=== PATIENT | female | born 1930 | race Caucasian/White ===

== ENCOUNTER 2017-11-17 16:23 | Emergency (ER) | payer MEDICARE, MEDICAID ==
[2017-11-17 16:35] VITALS: TEMP 97.9
[2017-11-17] MEDS ORDERED: MethylPREDNISolone Depo 80 mg/ml (5 ml) Inj IM ONE (16:52)
--- NOTE | 2017-11-17 16:54 | ED PDOC ---
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 Patient does not recall any trauma, however, she states she had been doing light exercise. Pain is worse when the patient moves from sitting to standing position. Patient has taken Tylenol and Naproxen with no relief. Patient denies any fever, chills, chest pain, shortness of breath, nausea, vomiting, diarrhea, urinary symptoms, neck pain, headache, dizziness, or any other complaints. PMD: Dr. White Time/Duration: < month (2 weeks, worse in last 2 days) Symptom Onset: Gradual Symptom Course: Unchanged Context: Home Past Medical History - Provider Review Nursing Documentation Reviewed: Yes - Cardiac Hx Cardiac Disorders: Yes Hx Hypertension: Yes - Pulmonary Hx Respiratory Disorders: No - Neurological Hx Neurological Disorder: No - HEENT Hx HEENT Disorder: No - Renal Hx Renal Disorder: No - Endocrine/Metabolic Hx Endocrine Disorders: Yes Hx Hypothyroidism: Yes - Hematological/Oncological Hx Blood Disorders: No - Integumentary Hx Dermatological Disorder: No - Musculoskeletal/Rheumatological Hx Musculoskeletal Disorders: Yes Hx Back Pain: Yes Hx Fractures: Yes - Gastrointestinal Hx Gastrointestinal Disorders: No - Genitourinary/Gynecological Hx Genitourinary Disorders: No - Psychiatric Hx Psychophysiologic Disorder: No Hx Substance Use: No - Surgical History Hx Orthopedic Surgery: Yes (R LEG R/T TRAUMA) Family/Social History - Physician Review Nursing Documentation Reviewed: Yes Family/Social History: Unknown Family HX Smoking Status: Never Smoked Hx Alcohol Use: No Hx Substance Use: No Allergies/Home Meds Allergies/Adverse Reactions: Allergies acetaminophen [From Percocet] Allergy (Verified 11/17/17 16:31) NAUSEA oxycodone [From Percocet] Allergy (Verified 11/17/17 16:31) NAUSEA Review of Systems - Physician Review All systems were reviewed & negative as marked: Yes - Review of Systems Constitutional: absent: Fevers, Night Sweats Respiratory: absent: SOB Cardiovascular: absent: Chest Pain Gastrointestinal: absent: Diarrhea, Nausea, Vomiting Genitourinary Female: absent: Dysuria Musculoskeletal: Back Pain. absent: Neck Pain Neurological: absent: Headache, Dizziness Physical Exam Vital Signs Reviewed: Yes Vital Signs Temp Pulse Resp BP Pulse Ox 11/17/17 22:09 65 16 162/87 H 95 11/17/17 18:30 78 18 169/76 H 95 11/17/17 16:33 97.9 F 80 18 180/81 H 95 Temperature: Afebrile Blood Pressure: Hypertensive Pulse: Regular Respiratory Rate: Normal Appearance: Positive for: Well-Appearing, Non-Toxic, Comfortable Pain Distress: None Mental Status: Positive for: Alert and Oriented X 3 - Systems Exam Head: Present: Atraumatic, Normocephalic Pupils: Present: PERRL Extroacular Muscles: Present: EOMI Conjunctiva: Present: Normal Mouth: Present: Moist Mucous Membranes Neck: Present: Normal Range of Motion Respiratory/Chest: Present: Clear to Auscultation, Good Air Exchange. No: Respiratory Distress, Accessory Muscle Use Cardiovascular: Present: Regular Rate and Rhythm, Normal S1, S2. No: Murmurs Abdomen: Present: Normal Bowel Sounds. No: Tenderness, Distention, Peritoneal Signs Back: Present: Other (Tenderness on left sciatic notch. Tenderness with motion of hip.) Upper Extremity: Present: Normal Inspection. No: Cyanosis, Edema Lower Extremity: Present: Normal Inspection. No: Edema Neurological: Present: GCS=15, CN II-XII Intact, Speech Normal Skin: Present: Warm, Dry, Normal Color. No: Rashes Psychiatric: Present: Alert, Oriented x 3, Normal Insight, Normal Concentration Medical Decision Making ED Course and Treatment: 11/17/17 17:02 Impression: 87 year old female presents to the Emergency department complaining of left lower back pain. Differential Diagnosis included but are not limited to: sciatica vs. compression fracture vs. bulging disc vs. cholelithiasis Plan: -- CT scan of the lumbar spine -- Methylprednisolone -- Reassess and disposition Progress Notes: 11/17/17 19:[address] results with family and they understand a disposition cannot be made until MRI is resulted. Since fractures may be pathologic, will also order blood work and urinalysis. - Lab Interpretations Lab Results: 11/17/17 19:38 11/17/17 19:38 Lab Results 11/17/17 19:38: Sodium 140, Potassium 4.7, Chloride 102, Carbon Dioxide 27, Anion Gap 15, BUN 17, Creatinine 0.8, Est GFR ( Amer) > 60, Est GFR (Non- Af Amer) > 60, Random Glucose 167 H, Calcium 10.6 H, Phosphorus 4.2, Magnesium 1.8, Total Bilirubin 0.6, AST 28, ALT 28, Alkaline Phosphatase 81, Total Protein 7.6, Albumin 4.2, Globulin 3.4, Albumin/Globulin Ratio 1.2 11/17/17 19:38: PT 11.7, INR 1.03 11/17/17 19:38: WBC 5.9, RBC 4.72, Hgb 11.3 L, Hct 35.8 L, MCV 75.8 L, MCH 23.9 L, MCHC 31.6, RDW 15.2 H, Plt Count 218, MPV 9.5, Gran % 70.4 H, Lymph % (Auto) 17.8 L, [place] % (Auto) 8.1 H, Eos % (Auto) 3.4, Baso % (Auto) 0.3, Gran # 4.16, Lymph # (Auto) 1.1 L, [place] # (Auto) 0.5, Eos # (Auto) 0.2, Baso # (Auto) 0.02 - RAD Interpretation Narrative RAD Interpretations (Text): 11/17/2017 18:57:00 CT Scan LUMBAR SPINE W/O CONTRAST FINDINGS: Vertebrae: There is a severe compression fracture of the L3 vertebral body. There is a moderate to severe compression fracture of T12. Mild retropulsion is visualized at these levels. A mild decrease in vertebral height is visualized at the L1 vertebral level as well. The acuity of these findings is indeterminate. There is no acute fracture of the remaining lumbar levels. Grade I anterolisthesis is noted of L5 on S1. There is mild scoliosis of the lumbar spine. Degenerative disc bulge/osteophyte complexes are identified at multiple lumbar and visualized lower thoracic levels. Osteopenia. Other bones/joints: Postoperative hardware is partially visualized within the left femoral head. Discs/spinal canal/neural foramina: Severe narrowing of thecal sac is visualized a T11-12. Compression of the spinal cord is considered. Moderate narrowing of thecal sac is visualized at L2-3 and L4-5. Mild narrowing of the thecal sac is visualized at L5-S1. Bilateral neural foramina is identified diffusely within the lumbar spine, with left neural foraminal narrowing at T12-L1. Vasculature: Extensive atherosclerotic changes. Gallbladder and bile ducts: Hyperdense gallstones are visualized. Kidneys and ureters: At the upper pole the right kidney, there is a hypodense cyst measuring 2.1 x 1.6 cm, with a small peripheral calcification. Stomach and bowel: There is gaseous distention of the rectum. Reproductive: Multiple calcifications are identified involving the uterus. IMPRESSION: 1. There is a severe compression fracture of the L3 vertebral body. There is a moderate to severe compression fracture of T12. Mild retropulsion is visualized at these levels. A mild decrease in vertebral height is visualized at the L1 vertebral level as well. The acuity of these findings is indeterminate. Clinical correlation and possible MRI recommended. 2. Grade I anterolisthesis is noted of L5 on S1. 3. There is mild scoliosis of the lumbar spine. 4. Degenerative disc bulge/osteophyte complexes are identified at multiple lumbar and visualized lower thoracic levels. 5. Severe narrowing of thecal sac is visualized a T11-12. Compression of the spinal cord is considered. Moderate narrowing of thecal sac is visualized at L2-3 and L4-5. Mild narrowing of the thecal sac is visualized at L5-S1. MRI is recommended for further evaluation. 6. Bilateral neural foramina is identified diffusely within the lumbar spine, with left neural foraminal narrowing at T12-L1. 7. Cholelithiasis. 8. At the upper pole the right kidney, there is a hypodense cyst measuring 2.1 x 1.6 cm, with a small peripheral calcification. 9. Incidental/non-acute findings are described above. 11/17/17 22:48 MRI of Lumbar spine reviewed by radiologist, shows: 1. Acute marrow edema and mild decrease of vertebral height is visualized at the L1 vertebral body. An acute fracture line is identified within the inferior aspect of this vertebral body. This fracture line appears to extend to the posterior cortex, with irregularity of the posterior cortex. 2. Severe chronic compression fractures are identified of the L3 and T11 vertebral bodies, with moderate chronic compression fractures at T8, T9, T10 and T12. 3. Degenerative changes are noted at multiple lumbar and visualized lower thoracic levels, as described above. 4. Mild narrowing of the thecal sac is identified at T9-10, with moderate narrowing of the thecal sac at T10-11 and T11-12. There is minimal increased concavity of the ventral border of the distal thoracic spinal cord at the T11-12 level, consistent with compression. 5. Moderate narrowing of the thecal sac is identified at L2-3, L4-5, and L5-S1. 6. Neural foramina is identified diffusely within the lumbar spine, as well as the visualized lower thoracic levels, as detailed above. 7. There is a small right pleural effusion. 8. There is grade I anterolisthesis of L5 on S1. 9. Small renal cysts are visualized bilaterally. A fluid level is visualized within a right renal cyst, consistent with a hemorrhagic component. Follow-up ultrasonography is recommended. Radiology Orders: 11/17/17 16:52 LUMBAR SPINE W/O CONTRAST [CT] Stat 11/17/17 19:07 SPINAL CANAL LUMBAR W/O CONT [MRI] Stat - Medication Orders Current Medication Orders: Discontinued Medications Hydromorphone HCl (Dilaudid) 1 mg IVP STAT STA Stop: 11/17/17 20:35 Last Admin: 11/17/17 20:46 Dose: 1 mg MAR Pain Assessment Document 11/17/17 20:46 HI (Rec: 11/17/17 20:46 [id number] Pain Reassessment Is this a pain reassessment? No Location Pain Location Body Site Back IVP Administration Document 11/17/17 20:46 HI (Rec: 11/17/17 20:46 [id number] Charges for Administration # of IVP Administrations 1 Methylprednisolone Acetate (Depo-Medrol) 80 mg IM ONCE ONE Stop: 11/17/17 17:16 Last Admin: 11/17/17 17:17 Dose: 80 mg IM Administration Charges Document 11/17/17 17:17 HI (Rec: 11/17/17 17:17 HI [id number]) Injection Site MAR Injection Site Left Gluteus [place] Charges for Administration # of IM Administrations 1 Morphine Sulfate (Morphine) 4 mg IVP STAT STA Stop: 11/17/17 19:47 Last Admin: 11/17/17 20:02 Dose: 4 mg MAR Pain Assessment Document 11/17/17 20:02 HI (Rec: 11/17/17 20:03 HI [id number]) Pain Reassessment Is this a pain reassessment? No IVP Administration Document 11/17/17 20:02 HI (Rec: 11/17/17 20:03 [id number][facility] Charges for Administration # of IVP Administrations 1 Ondansetron HCl (Zofran Inj) 4 mg IVP STAT STA Stop: 11/17/17 19:47 Last Admin: 11/17/17 20:02 Dose: 4 mg IVP Administration Document 11/17/17 20:02 HI (Rec: 11/17/17 20:02 [id number][facility] Charges for Administration # of IVP Administrations 1 Ondansetron HCl (Zofran Inj) 4 mg IVP STAT STA Stop: 11/17/17 21:48 Last Admin: 11/17/17 21:57 Dose: 4 mg IVP Administration Document 11/17/17 21:57 HI (Rec: 11/17/17 21:57 [id number][facility] Charges for Administration # of IVP Administrations 1 - Scribe Statement The provider has reviewed the documentation as recorded by the Ilia Spear Provider Scribe Attestation: All medical record entries made by the Scribe were at my direction and personally dictated by me. I have reviewed the chart and agree that the record accurately reflects my personal performance of the history, physical exam, medical decision making, and the department course for this patient. I have also personally directed, reviewed, and agree with the discharge instructions and disposition. Disposition/Present on Arrival - Present on Arrival Any Indicators Present on Arrival: No History of DVT/PE: No History of Uncontrolled Diabetes: No Urinary Catheter: No History of Decub. Ulcer: No History Surgical Site Infection Following: None - Disposition Have Diagnosis and Disposition been Completed?: Yes Diagnosis: Compression fracture of L1 lumbar vertebra Disposition: HOME/ ROUTINE Disposition Time: 23:13 Patient Plan: Discharge Condition: GOOD Discharge Instructions (ExitCare): Vertebral Compression Fracture (DC) Additional Instructions: Sorry this hurts so badly. Zofran will help with the nausea from the Percocet. Return to us if any problems. Best- Dr. Jerry Glez Referrals: Alma Buckner MD [Primary Care Provider] - Follow up with primary Forms: [place] (Sami)
[2017-11-17] MEDS ORDERED: MethylPREDNISolone Depo 40 mg/ml Inj IM ONE (17:15)
--- NOTE | 2017-11-17 18:57 | CT ---
EXAM: CT Lumbar Spine Without Intravenous Contrast EXAM DATE/TIME: 11/17/2017 4:52 PM CLINICAL HISTORY: The patient age is 87 years old and is female; Pain; Low back pain and sciatica; Left; Additional info: L sided sciatica/lumbar radiculopathy Facility exam id and description: Ct lumbs lumbar spine w/o contrast TECHNIQUE: Axial computed tomography images of the lumbar spine without intravenous contrast. All CT scans at this facility use one or more dose reduction techniques, viz.: automated exposure control; ma/kV adjustment per patient size (including targeted exams where dose is matched to indication; i.e. head); or iterative reconstruction technique. Coronal and sagittal reformatted images were created and reviewed. COMPARISON: No relevant prior studies available. FINDINGS: Vertebrae: There is a severe compression fracture of the L3 vertebral body. There is a moderate to severe compression fracture of T12. Mild retropulsion is visualized at these levels. A mild decrease in vertebral height is visualized at the L1 vertebral level as well. The acuity of these findings is indeterminate. There is no acute fracture of the remaining lumbar levels. Grade I anterolisthesis is noted of L5 on S1. There is mild scoliosis of the lumbar spine. Degenerative disc bulge/osteophyte complexes are identified at multiple lumbar and visualized lower thoracic levels. Osteopenia. Other bones/joints: Postoperative hardware is partially visualized within the left femoral head. Discs/spinal canal/neural foramina: Severe narrowing of thecal sac is visualized a T11-12. Compression of the spinal cord is considered. Moderate narrowing of thecal sac is visualized at L2-3 and L4-5. Mild narrowing of the thecal sac is visualized at L5-S1. Bilateral neural foramina is identified diffusely within the lumbar spine, with left neural foraminal narrowing at T12-L1. Vasculature: Extensive atherosclerotic changes. Gallbladder and bile ducts: Hyperdense gallstones are visualized. Kidneys and ureters: At the upper pole the right kidney, there is a hypodense cyst measuring 2.1 x 1.6 cm, with a small peripheral calcification. Stomach and bowel: There is gaseous distention of the rectum. Reproductive: Multiple calcifications are identified involving the uterus. IMPRESSION: 1. There is a severe compression fracture of the L3 vertebral body. There is a moderate to severe compression fracture of T12. Mild retropulsion is visualized at these levels. A mild decrease in vertebral height is visualized at the L1 vertebral level as well. The acuity of these findings is indeterminate. Clinical correlation and possible MRI recommended. 2. Grade I anterolisthesis is noted of L5 on S1. 3. There is mild scoliosis of the lumbar spine. 4. Degenerative disc bulge/osteophyte complexes are identified at multiple lumbar and visualized lower thoracic levels. 5. Severe narrowing of thecal sac is visualized a T11-12. Compression of the spinal cord is considered. Moderate narrowing of thecal sac is visualized at L2-3 and L4-5. Mild narrowing of the thecal sac is visualized at L5-S1. MRI is recommended for further evaluation. 6. Bilateral neural foramina is identified diffusely within the lumbar spine, with left neural foraminal narrowing at T12-L1. 7. Cholelithiasis. 8. At the upper pole the right kidney, there is a hypodense cyst measuring 2.1 x 1.6 cm, with a small peripheral calcification. 9. Incidental/non-acute findings are described above.
[2017-11-17] MEDS ORDERED: Morphine 4 mg/ml ISec IVP STA (19:46)
[2017-11-17] MEDS ORDERED: Morphine 2 mg/ml ISec ONE (19:50)
[2017-11-17 20:11] LABS: INR 1.03 (0.93-1.08); PROTHROMBIN TIME 11.7 SECONDS (9.4-12.5)
[2017-11-17 20:12] LABS: BASO # 0.02 K/mm3 (0.0-2.0); BASO % 0.3 % (0.0-3.0); EOS # 0.2 (0.0-0.7); EOS % 3.4 % (1.5-5.0); GRAN # 4.16 (1.4-6.5); GRAN % 70.4 % (50.0-68.0); HEMOGLOBIN 11.3 g/dL (12.0-16.0); LYMPH # 1.1 (1.2-3.4); LYMPH % 17.8 % (22.0-35.0); MEAN CELL VOLUME 75.8 fl (80.0-105.0); MEAN CORPUSCULAR HEMOGLOBIN 23.9 pg (25.0-35.0); MEAN CORPUSCULAR HGB CONC 31.6 g/dl (31.0-37.0); MEAN PLATELET VOLUME 9.5 fl (7.0-11.0); MONO # 0.5 (0.1-0.6); MONO % 8.1 % (1.0-6.0); RBC 4.72 10^6/uL (3.5-6.1); RED CELL DISTRIBUTION WIDTH 15.2 % (11.5-14.5); WHITE BLOOD COUNT 5.9 10^3/ul (4.5-11.0)
[2017-11-17 20:20] LABS: ALB/GLOB RATIO 1.2 (1.1-1.8); ALBUMIN 4.2 g/dL (3.0-4.8); ALT/SGPT 28 U/L (7-56); AST/SGOT 28 U/L (14-36); BLOOD UREA NITROGEN 17 mg/dL (7-21); CALCIUM 10.6 mg/dL (8.4-10.5); GFR AFRICAN-AMERICAN > 60; GFR NON-AFRICAN AMERICAN > 60; MAGNESIUM 1.8 mg/dL (1.7-2.2)
[2017-11-17] MEDS ORDERED: HYDROmorphone 1 mg/ml ISec ONE (20:30)
[2017-11-17] MEDS ORDERED: HYDROmorphone 1 mg/ml ISec IVP STA (20:34)
[2017-11-17 22:11] VITALS: RESP 16
--- NOTE | 2017-11-17 22:45 | MRI ---
EXAM: MR Lumbar Spine Without Intravenous Contrast EXAM DATE/TIME: 11/17/2017 7:07 PM CLINICAL HISTORY: The patient age is 87 years old and is female; Pain; Low back pain; Additional info: Multiple compression FX, please include [facility] Facility exam id and description: Mri spls spinal canal lumbar w/o cont TECHNIQUE: Magnetic resonance images of the lumbar spine without intravenous contrast in multiple planes. COMPARISON: CT - LUMBAR SPINE W/O CONTRAST 2017-11-17 17:57 FINDINGS: Vertebrae: Severe chronic compression fractures are identified of the L3 and T11 vertebral bodies, with moderate chronic compression fractures at T8, T9, T10 and T12. No acute marrow edema is visualized at these levels. There is grade I anterolisthesis of L5 on S1. Other bones/joints: Degenerative disc disease is noted at multiple lumbar and visualized lower thoracic levels, with disc bulge/osteophyte complexes. Marrow: Acute marrow edema and mild decrease of vertebral height is visualized at the L1 vertebral body. An acute fracture line is identified within the intra-aspect of this vertebral body. This fracture line appears to extend to the posterior cortex, with irregularity of the posterior cortex. A T1 hyperintense hemangioma is identified within the T12 vertebral body. There is hypointense vertebral plasty within the T9 vertebral body. Spinal cord: The distal end of the conus medullaris ends at T12-L1, normal in position. No epidural fluid collection is visualized. Soft tissues:T2 hyperintense small renal cysts are visualized bilaterally. A fluid level is visualized within a right renal cyst, consistent with a hemorrhagic component. Small T2 hyperintense signal meningeal cysts are visualized. Pleural space: There is a small right pleural effusion. DISCS/SPINAL CANAL/NEURAL FORAMINA: T11-T12: Mild narrowing of the thecal sac is identified at T9-10, with moderate narrowing of the thecal sac at T10-11 and T11-12. There is minimal increased concavity of the ventral border of the distal thoracic spinal cord at the T11-12 level, consistent with compression. No acute edema is identified within the spinal cord at this level. Bilateral neural foraminal narrowing is identified at T9-10 and T10-11, with right neural foraminal narrowing at T11-12. L1-L2: There is no significant narrowing of the thecal sac. Bilateral neural foramina is identified. L2-L3: There is moderate narrowing of the thecal sac. Moderate bilateral neural foraminal narrowing is identified, with bilateral foraminal protrusions. L3-L4: There is no significant narrowing of the thecal sac. Mild bilateral neural foramina is identified. There is facet arthropathy bilaterally. L4-L5: There is bilateral facet arthropathy. A broad based disc bulge is visualized with moderate narrowing of the thecal sac. There is narrowing of both lateral recesses. Mild/moderate bilateral neural foramina is identified. L5-S1: There is bilateral facet arthropathy. Moderate narrowing of the thecal sac is visualized. The thecal sac tapers at this level, which contributes to the narrowing. Mild bilateral neural foramina is identified. IMPRESSION: 1. Acute marrow edema and mild decrease of vertebral height is visualized at the L1 vertebral body. An acute fracture line is identified within the inferior aspect of this vertebral body. This fracture line appears to extend to the posterior cortex, with irregularity of the posterior cortex. 2. Severe chronic compression fractures are identified of the L3 and T11 vertebral bodies, with moderate chronic compression fractures at T8, T9, T10 and T12. 3. Degenerative changes are noted at multiple lumbar and visualized lower thoracic levels, as described above. 4. Mild narrowing of the thecal sac is identified at T9-10, with moderate narrowing of the thecal sac at T10-11 and T11-12. There is minimal increased concavity of the ventral border of the distal thoracic spinal cord at the T11-12 level, consistent with compression. 5. Moderate narrowing of the thecal sac is identified at L2-3, L4-5, and L5-S1. 6. Neural foramina is identified diffusely within the lumbar spine, as well as the visualized lower thoracic levels, as detailed above. 7. There is a small right pleural effusion. 8. There is grade I anterolisthesis of L5 on S1. 9. Small renal cysts are visualized bilaterally. A fluid level is visualized within a right renal cyst, consistent with a hemorrhagic component. Follow-up ultrasonography is recommended. 10. Additional findings described above.
[2017-11-17 23:29] VITALS: BP 157/82; PULSE 72; O2SAT 100
== END 2017-11-18 01:07 | disposition home or self-care (01) ==
LOC: ED 16:23
DX: M48.56XA Collapsed vertebra, not elsewhere classified, lumbar region, initial encounter for fracture (principal); I10 Essential (primary) hypertension; E03.9 Hypothyroidism, unspecified
CPT/HCPCS: 72131; 72148; 80053; 83735; 84100; 85025; 85610; 96372; 96374; 96375; 96376; 99284; J1030; J1170; J2270; J2405